=== PATIENT | female | born 1975 | race Caucasian/White ===

== ENCOUNTER → 2016-10-01 | Outpatient (CLI) | payer OTHER ==
[2016-10-04 14:31] LABS: CARDIOLIPIN AB IGA <9 APL U/mL (0-11)
[2016-10-05 09:22] LABS: THYROID PEROXIDASE AB 8 IU/mL (0-34)
== END | disposition home or self-care (01) ==
LOC: LB 11:57
DX: N96 Recurrent pregnancy loss (principal)
CPT/HCPCS: 81241; 85613; 86147; 86376